=== PATIENT | female | born 1945 | race Caucasian/White ===

== ENCOUNTER → 2016-12-30 | Outpatient (CLI) | payer MEDICARE, OTHER ==
[~2016-12-30] MED LIST: ALBUTEROL17 GM INH; ALPRAZOLAM; ALPRAZOLAM PO; ANASTROZOLE PO; ANASTROZOLE1 MG PO; BACTRIM DS TABL1 TA2 PO; CITRACAL + D CA1 TA1 PO; DOXYCYCLINE HY100 M1 PO; FLEXERIL10 MG PO; LISINOPRIL; LISINOPRIL/HCTZ PO; LORTAB 10-3251 EACH; NORCO 10/325 TA1 TAB PO; PREDNISONE10 MG PO; TIMOPTIC 0.25% O5 M1 OP; VITAMIN D31000 UNIT PO; ZESTORETIC 20/11 TAB PO
--- NOTE | ~2016-12-30 | US5 ---
[facility] A Service of [facility] & [facility] RADIOLOGY TEXT RESULTS PATIENT: DAVID BAEZ LOCATION: [facility] : 43 UNIT #: [id number] AGE: [address]: Primitivo Melton MD SEX: F ORDER DR: [id number] [facility] [address] [place], [place] [address] [id number] O MR#: [id number] Acc #: [id number] NAME: DAVID BAEZ : 1945 SEX: F STUDY DATE/TIME: 12/30/2016 10:49 UNIT: [facility] ROOM: STUDY DESCRIPTION: US Abdominal Complete Attending Physician: Primitivo Melton III, M.D. Ordering Physician: Primitivo Melton III, M.D. Primary Care Physician: Esequiel Hunt M.D. MEDICAL IMAGING REPORT This report is preliminary unless electronic signature is present EXAM Complete abdominal ultrasound DATE 12/30/2016 HISTORY Hepatitis C virus treated 7-8 years ago, failed. New treatment. Diagnosed 2001. Hypertension controlled on medication. History of breast cancer in 2011 with lumpectomy. COMPARISON Complete abdominal ultrasound 12/11/2015. FINDINGS Liver size is within normal limits measuring about 12.6 cm in long axis. No focal or suspicious liver lesions identified. There is very mildly coarsened hepatic echotexture which is nonspecific and may be related to the patient's underlying hepatitis C virus. No ascites is evident. Intrahepatic IVC has an unremarkable perez-scale appearance. Gallbladder is free of shadowing stone, sludge, wall thickening, or pericholecystic fluid. Right kidney measures 9.0 cm in length and contains 2 simple cysts, the dominant in the lower pole measuring 3.2 cm, another in the upper pole measuring 2.6 cm. No right hydronephrosis is evident and the right kidney otherwise maintains normal cortical echotexture. Common bile duct caliber is normal, 4 mm. No intrahepatic biliary ductal dilation is seen. The abdominal aorta measures up to 2.9 cm proximally, up to 1.4 cm distally. On the previous study, the abdominal aorta measured up to 2.6 cm proximally. I suspect this is probably related to differences in measurement technique. On the previous study, the abdominal aorta measures up to 2.6 cm distally, again, thought most likely related to differences in measurement technique. [facility] A Service of [facility] RADIOLOGY TEXT RESULTS PATIENT: DAVID BAEZ LOCATION: [facility] : 43 UNIT #: [id number] AGE: [address]: Primitivo Melton MD SEX: F ORDER DR: The spleen size is within normal limits, 13.4 cm. No focal splenic lesion is identified. A simple left renal cyst measures 3.7 cm, with left kidney measuring approximately 12.2 cm in length. No shadowing left renal stone or hydronephrosis is evident. No ascites is seen. The pancreas is obscured by bowel gas. IMPRESSION 1. Mildly and diffusely coarsened hepatic echotexture is nonspecific but may be related to patient's underlying hepatitis C virus. The liver does not appear grossly cirrhotic, no focal liver lesion is seen. 2. Unremarkable appearance of the gallbladder. No biliary dilation. 3. Bilateral renal cysts. 4. The upper abdominal aorta is borderline aneurysmal at 2.9 cm. There is slight differences in measurements sizes of the proximal and distal abdominal aorta, in comparison to 12/11/2015, which I highly suspect is due to slight differences in circuit tester measurement technique. 5. Spleen size measures within normal limits on today's examination. Dictated by... Anabella Gonsalez M.D. THIS IS AN ELECTRONICALLY VERIFIED REPORT Anabella Gonsalez M.D. at 01/02/2017 8:30 AM Aurelia TD: 12/30/2016 16:11 JOB #: [id number] MEDICAL IMAGING REPORT Page 1 of 1 COPY
== END | disposition home or self-care (01) ==
LOC: CWCC 10:21
DX: B18.2 Chronic viral hepatitis C (principal); K76.9 Liver disease, unspecified; N28.1 Cyst of kidney, acquired
CPT/HCPCS: 76700

== ENCOUNTER 2017-01-18 08:11 | Emergency (ER) | payer MEDICARE, OTHER ==
--- NOTE | ~2017-01-18 | CR63 ---
[facility] A Service of [facility] & [facility] RADIOLOGY TEXT RESULTS PATIENT: DAVID BAEZ LOCATION: [facility] : 43 UNIT #: [id number] AGE: [address]: Jarrett Lees MD SEX: F ORDER DR: [id number] [facility] [place] [address] [place], [place] [address] [id number] MR#: [id number] Acc #: [id number] NAME: DAVID BAEZ : 1945 SEX: F STUDY DATE/TIME: 01/18/2017 8:52 UNIT: [facility] ROOM: STUDY DESCRIPTION: CR Chest 2 View Attending Physician: Jarrett Lees M.D. Ordering Physician: Jarrett Lees M.D. Primary Care Physician: Esequiel Hunt M.D. MEDICAL IMAGING REPORT This report is preliminary unless electronic signature is present EXAM PA and lateral chest radiograph INDICATION Cough, congestion and shortness of breath for 3-4 days. FINDINGS Patient does appear to have some cardiomegaly although I do not see any evidence of vascular congestion. No pneumothorax is identified. Some blunting of the left costophrenic angle is favored to represent some atelectasis. There is some eventration of the right hemidiaphragm. No definite acute infiltrates are seen. There is atherosclerotic involvement of the thoracic aorta. IMPRESSION 1. Stable cardiomegaly without evidence of vascular congestion. 2. Mild left basilar atelectasis. Dictated by... Flor Kellogg M.D. THIS IS AN ELECTRONICALLY VERIFIED REPORT Flor Kellogg M.D. at 01/19/2017 10:49 AM VIRGEN/alcon TD: 01/18/2017 14:15 JOB #: [id number] MEDICAL IMAGING REPORT Page 1 of 1 COPY
[~2017-01-18 08:11] MED LIST changes: -ALPRAZOLAM; -LISINOPRIL; -LORTAB 10-3251 EACH
== END 2017-01-18 09:35 | disposition home or self-care (01) ==
LOC: CED 08:11
DX: J06.9 Acute upper respiratory infection, unspecified (principal); I10 Essential (primary) hypertension
CPT/HCPCS: 71020; 99283

== ENCOUNTER → 2017-02-24 | Outpatient (CLI) | payer MEDICARE, OTHER ==
[~2017-02-24] MED LIST changes: +ALPRAZOLAM; +LISINOPRIL; +LORTAB 10-3251 EACH
--- NOTE | ~2017-02-24 | MY29 ---
[facility] A Service of [facility] RADIOLOGY TEXT RESULTS PATIENT: DAVID BAEZ LOCATION: [facility] : 43 UNIT #: [id number] AGE: [address]: Esequiel Hunt MD SEX: F ORDER DR: [id number] [facility] [address] [place], [place] [address] [id number] O MR#: [id number] Acc #: [id number] NAME: DAVID BAEZ : 1945 SEX: F STUDY DATE/TIME: 02/24/2017 9:44 UNIT: [facility] ROOM: STUDY DESCRIPTION: MY JONES SCREENING W/ CAD BILAT Attending Physician: Esequiel Hunt M.D. Ordering Physician: Esequiel Hunt M.D. Primary Care Physician: Esequiel Hunt M.D. MEDICAL IMAGING REPORT This report is preliminary unless electronic signature is present EXAM Digital screening mammogram 02/24/2017 HISTORY 71-year-old woman. Previous right lumpectomy with adjuvant therapy. Annual screen. COMPARISON Mammograms date to 03/31/2008 with most recent comparison 10/23/2015. FINDINGS Digital imaging of each breast was completed utilizing screening protocol. Review includes FDA-approved CAD device. Breast parenchyma is fatty replaced. Numerous calcifications are again noted in the right breast. 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 I see no interval occurring breast mass. There are no suspicious calcifications at this time and no interval occurring architectural disturbance. IMPRESSION Benign mammogram. Stable post lumpectomy findings right breast. Annual screening recommended. Patient's over the age of 40 are entered into a reminder system with target due date for the next mammogram. BIRADS: 2 Benign findings Dictated by... Zay Varghese M.D. THIS IS AN ELECTRONICALLY VERIFIED REPORT [facility] A Service of [facility] & [facility] RADIOLOGY TEXT RESULTS PATIENT: DAVID BAEZ LOCATION: [facility] : 43 UNIT #: [id number] AGE: [address]: Esequiel Hunt MD SEX: F ORDER DR: Zay Varghese M.D. at 02/24/2017 3:55 PM HARDIK/christal TD: 02/24/2017 15:00 JOB #: [id number] MEDICAL IMAGING REPORT Page 1 of 1 COPY
== END | disposition home or self-care (01) ==
LOC: CWCC 08:00 → CMAM 08:00 → CWCC 08:52
DX: Z12.31 Encounter for screening mammogram for malignant neoplasm of breast (principal); Z98.890 Other specified postprocedural states
CPT/HCPCS: G0202

== ENCOUNTER 2017-03-08 20:13 | Emergency (ER) | payer MEDICARE, OTHER ==
[~2017-03-08] VITALS: Ht 165.1 cm; Wt 90.7 kg
[~2017-03-08 20:13] MED LIST changes: -ALPRAZOLAM; -LISINOPRIL; -LORTAB 10-3251 EACH
[2017-03-08] MEDS ORDERED: LORTAB 10-3251 EACH (20:45)
[2017-03-08] MEDS ORDERED: ALPRAZOLAM (20:45)
[2017-03-08] MEDS ORDERED: LISINOPRIL (20:45)
== END 2017-03-08 21:00 | disposition home or self-care (01) ==
LOC: SED 20:13
DX: L02.413 Cutaneous abscess of right upper limb (principal); I10 Essential (primary) hypertension; F41.9 Anxiety disorder, unspecified; M19.90 Unspecified osteoarthritis, unspecified site
CPT/HCPCS: 10060; 99283